=== PATIENT | male | born 1995 | race Caucasian/White ===

== ENCOUNTER 2018-05-11 20:48 | Emergency (ER) | payer OTHER, BC ==
[~2018-05-11] VITALS: Ht 175.3 cm; Wt 56.7 kg
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
[2018-05-11 22:36] VITALS: BP 116/74
== END 2018-05-11 22:36 | disposition home or self-care (01) ==
LOC: ER 20:49
DX: M54.6 Pain in thoracic spine (principal); R40.2142 Coma scale, eyes open, spontaneous, at arrival to emergency department; R40.2252 Coma scale, best verbal response, oriented, at arrival to emergency department; R40.2362 Coma scale, best motor response, obeys commands, at arrival to emergency department; V49.59XA Passenger injured in collision with other motor vehicles in traffic accident, initial encounter
CPT/HCPCS: 72125; 72128